=== PATIENT | male | born 1930 | race Caucasian/White ===

== ENCOUNTER 2020-09-24 20:03 | Day surgery (SDCO) | payer OTHER ==
[~2020-09-24 20:03] MED LIST: 3IN1 COMMODE XX; ADALAT CC60 MG PO; ALLOPURINOL100 MG PO; ALLOPURINOL300 MG PO; ARICEPT 5MG TABL5 MG PO; ASPIRIN325 MG PO; AUGMENTIN 875-1 EACH PO; DIGITEK125 MCG PO; GLUCOPHAGE500 MG PO; LIPITOR 10MG TA10 MG PO; LISINOPRIL 5 MG5 MG PO; LYRICA25 MG PO; METFORMIN HCL500 MG PO; METOPROLOL TAR100 MG PO; MOBIC7.5 MG PO; NEURONTIN400 MG PO; NIFEDIPINE ER60 MG PO; NORCO 5-325 TA1 EACH PO; POLY-IRON150 MG PO; SYNTHROID112 MCG PO; SYNTHROID25 MCG PO; TRIAMTERENE-HC1 EACH PO; ULTRA-LIGHT RO1 EACH XX; ZYRTEC10 M3 PO
[2020-09-24 20:50] LABS: BASOPHIL 0.3 % (0-2); EOSINOPHIL 1.8 % (0-7); HGB 9.3 g/dl (13.2-18.0); LYMPHOCYTE 26.2 % (15-48); MCH 33.3 pg (25.0-31.0); MCHC 32.1 g/dL (32.0-36.0); MCV 103.9 fL (78.0-100.0); MONOCYTE 9.5 % (0-12); MPV 10.1 fL (6.0-9.5); NEUTROPHIL 61.4 % (41-80); NRBC 0; PLT 131 K/uL (150-400); RBC 2.79 M/uL (4.70-6.00); RDW 14.6 % (11.5-14.0); WBC 6.6 K/uL (4.0-10.5)
[2020-09-24 21:02] LABS: ALBUMIN 3.1 g/dL (3.4-5.0); BILIRUBIN - TOTAL 0.6 mg/dL (0.2-1.0); BUN/CREAT RATIO (CALC) 15.4 RATIO; CREATININE 1.17 mg/dL (0.67-1.17); GLOBULIN (CALCULATION) 4.6 g/dL; POTASSIUM 4.3 mmol/L (3.5-5.1); TOTAL PROTEIN 7.7 g/dL (6.4-8.2)
[2020-09-24 21:05] LABS: LACTIC ACID 2.7 mmol/L (0.4-1.9)
[2020-09-24 22:03] LABS: CORONAVIRUS 2019 SARS-COV-2 NEGATIVE (NEGATIVE); INFLUENZA A NAA NEGATIVE (NEGATIVE)
[2020-09-25 00:04] LABS: BILIRUBIN NEGATIVE (NEGATIVE); BLOOD 1+ Ery/uL (NEGATIVE); CLARITY CLEAR (CLEAR); COLOR YELLOW (YELLOW); GLUCOSE (U) NORMAL (NORMAL); LEUKOCYTES NEGATIVE Leu/uL (NEGATIVE); NITRITE NEGATIVE (NEGATIVE); PROTEIN TRACE (LOW) mg/dL (NEGATIVE); UROBILINOGEN 0.2 mg/dL (0.2-1.0)
[2020-09-25 00:09] LABS: SQUAMOUS EPITHELIAL CELLS RARE
[2020-09-25 08:25] LABS: BASOPHIL 0.2 % (0-2); EOSINOPHIL 0.7 % (0-7); HCT 28.4 % (42.0-52.0); HGB 9.1 g/dl (13.2-18.0); LYMPHOCYTE 22.9 % (15-48); MCH 32.9 pg (25.0-31.0); MCV 102.5 fL (78.0-100.0); MONOCYTE 13.2 % (0-12); MPV 9.4 fL (6.0-9.5); NEUTROPHIL 62.2 % (41-80); NRBC 0; PLT 117 K/uL (150-400); RBC 2.77 M/uL (4.70-6.00); RDW 14.5 % (11.5-14.0); WBC 5.9 K/uL (4.0-10.5)
[2020-09-25 08:43] LABS: IRON % SATURATION 9.4 %SAT (20-50)
[2020-09-25 09:12] LABS: CREATININE 1.06 mg/dL (0.67-1.17); FOLIC ACID (SERUM) 12.1 ng/mL (8.6-58.9); POTASSIUM 4.1 mmol/L (3.5-5.1)
[2020-09-25] MEDS ORDERED: LISINOPRIL5 MG PO (11:51)
[2020-09-25] MEDS ORDERED: PREGABALIN25 MG PO (11:51)
[2020-09-25] MEDS ORDERED: NIFEDIPINE ER60 M1 PO (11:52)
[2020-09-25] MEDS ORDERED: METFORMIN HCL500 MG PO (11:53)
[2020-09-25] MEDS ORDERED: ALL DAY ALLERGY10 M2 PO (11:53)
--- NOTE | 2020-09-25 14:18 | NUR ---
SPOKE [facility] PT. SON, JUNIOR CHAD BROOKS. ADVISED HIM AND HIS CAREGIVER, MARLO ZHANG, OF THE RECOMMENDATION FROM THERAPY REGARDING HIS FATHER. EXPLAINED THAT THE THERAPY RECOMMENDATION IS FOR PT. TO GO TO A ALF FACILITY FOR REHAB. REFERRAL HAS BEEN SENT TO [facility] SO THEY MAY PURSUE AN AUTHORIZATION FROM HIS INSURANCE. PT. IS HAVING LEFT SIDED WEAKNESS AND IS GOING FOR A MRI.
--- NOTE | 2020-09-26 07:33 | NUR ---
ORIENTATING VICENTE HADLEY, VERIFIES ALL DOCUMENTATION IS TRUE AND ACCURATE. DID ALL ASSESMENTS AND MEDICATION PASSES WITH VICENTE HADLEY
[2020-09-26] MEDS ORDERED: PLAVIX75 MG PO (10:16)
[2020-09-26] MEDS ORDERED: ASPIRIN EC81 MG PO (10:16)
[2020-09-26] MEDS ORDERED: TOPROL XL 50 MG50 MG PO (10:18)
[2020-09-27 03:53] LABS: HCT 25.8 % (42.0-52.0); HGB 8.6 g/dl (13.2-18.0); MCHC 33.3 g/dL (32.0-36.0); MPV 9.9 fL (6.0-9.5); RBC 2.53 M/uL (4.70-6.00); RDW 14.1 % (11.5-14.0); WBC 3.7 K/uL (4.0-10.5)
[2020-09-27 04:07] LABS: BUN/CREAT RATIO (CALC) 17.5 RATIO; CREATININE 1.2 mg/dL (0.67-1.17); POTASSIUM 3.6 mmol/L (3.5-5.1)
--- NOTE | 2020-09-28 12:54 | NUR ---
TC FANY DE LA GARZA AT [facility].. [facility] AND [facility]ILL PENDING. SHE WILL ADVISE WHEN SHE HAS THE AUTHORIZATION FROM THE INSURANCE.
--- NOTE | 2020-09-28 12:55 | NUR ---
MET WITH PATIENT. HE ADVISES THAT HE WISHES TO RETURN TO THE HOME OF HIS SISTER AND BROTHER IN LAW. HE DOES HAVE A WHEELCHAIR. TC TO [phone]. PER ORVAL THIS IS HIS SISTER'S PHONE NUMBER, BUT HE THINKS SHE LOST HER PHONE. TC FANY ROCA SHE GAVE ME THE PHONE FOR [facility]- BROTHER IN LAW. [phone]. LEFT MESSAGE FOR HIM TO CONTACT ME.
--- NOTE | 2020-09-28 15:25 | NUR ---
TWO TC WITH FREDERIC AT [facility]. SHE ADVISED THAT SHE HAS BEEN INFORMED BY [facility] THAT THE CASE IS STILL PENDING.
--- NOTE | 2020-09-28 16:15 | NUR ---
SPOKE WITH CHARMAINE AT [facility]. SHE INFORMED ME THAT PT. WOULD REQUIRE A NEW COVID TEST BEFORE HE COULD BE ADMITTED. SHE DID STATE THAT THEY HAD RECEIVED HIS AUTHORIZATION FROM THE INSURANCE. ADVISED CHARMAINE THAT I SHOULD HAVE BEEN TOLD THIS MORNING THAT PT. WOULD REQUIRE A NEW COVID TEST. ADVISED DR. COLLINS THAT [facility] HAS RECEIVED AUTH, BUT NOW NEEDS A NEW COVID TEST.
--- NOTE | 2020-09-28 16:29 | NUR ---
SPOKE WITH CHARMAINE, [facility]. SHE WILL TAKE PT. THIS EVENING ONCE RECEIVE NEG COVID TEST AND D/C SUMMARY. REPORT NUMBER IS [phone] OR [phone] FAX FOR REPORT IS [phone]
--- NOTE | 2020-09-28 16:53 | NUR ---
TC TO PT. SON HAD TO LEAVE A MESSAGE FOR HIM TO CONTACT ME.
--- NOTE | 2020-09-28 17:26 | NUR ---
PER JUAN MAYO RN IS GOING TO ARRANGE FOR PT. TO BE TRANSPORTED BY AMBULANCE. COULDN'T FIND JUAN, BUT TOLD JOMAR TOMLINSON TO ADVISE JUAN TO CONTACT THE SON IF THE AMBULANCE NEEDED PAYOR INFORMATION.
== END 2020-09-28 18:20 ==
LOC: FER 20:03 → FMS 09-25 00:23
PROVIDERS: Emergency Medicine Emergency Medical Services; Nurse Practitioner; ADMIT Hospitalist
DX: I63.9 Cerebral infarction, unspecified (principal); I65.21 Occlusion and stenosis of right carotid artery; I66.01 Occlusion and stenosis of right middle cerebral artery; R53.1 Weakness; R27.0 Ataxia, unspecified; D50.9 Iron deficiency anemia, unspecified; R29.6 Repeated falls; M47.812 Spondylosis without myelopathy or radiculopathy, cervical region; M48.02 Spinal stenosis, cervical region; M10.9 Gout, unspecified; I10 Essential (primary) hypertension; D53.9 Nutritional anemia, unspecified; E11.9 Type 2 diabetes mellitus without complications; E03.9 Hypothyroidism, unspecified; E78.5 Hyperlipidemia, unspecified; F03.90 Unspecified dementia, unspecified severity, without behavioral disturbance, psychotic disturbance, mood disturbance, and anxiety; D53.1 Other megaloblastic anemias, not elsewhere classified; Z86.79 Personal history of other diseases of the circulatory system; Z98.890 Other specified postprocedural states; Z20.822 Contact with and (suspected) exposure to COVID-19; Z79.899 Other long term (current) drug therapy
CPT/HCPCS: 36415; 70450; 70551; 71045; 71101; 72125; 72170; 80048; 80053; 80162; 81001; 82607; 82728; 82746; 83540; 83550; 83605; 84145; 84484; 85025; 86140; 87088; 93005; 97162; 97166; 97530; 97530-GP; 97535; G0378; J1650; J7030; U0002

== ENCOUNTER 2020-10-17 17:23 | Inpatient (IN) | payer OTHER ==
[~2020-10-17 17:23] MED LIST changes: +ALL DAY ALLERGY10 M2 PO; +ASPIRIN EC81 MG PO; +LISINOPRIL5 MG PO; +NIFEDIPINE ER60 M1 PO; +PLAVIX75 MG PO; +PREGABALIN25 MG PO; +TOPROL XL 50 MG50 MG PO
[2020-10-17 19:40] LABS: BASOPHIL 0.1 % (0-2); EOSINOPHIL 0.3 % (0-7); HCT 31.2 % (42.0-52.0); HGB 10.1 g/dl (13.2-18.0); LYMPHOCYTE 17.5 % (15-48); MCHC 32.4 g/dL (32.0-36.0); NEUTROPHIL 70.4 % (41-80); NRBC 0; PLT 145 K/uL (150-400); RBC 3.06 M/uL (4.70-6.00); RDW 14.1 % (11.5-14.0); WBC 7.4 K/uL (4.0-10.5)
[2020-10-17 20:00] LABS: ALBUMIN 2.8 g/dL (3.4-5.0); BILIRUBIN - TOTAL 0.3 mg/dL (0.2-1.0); BUN/CREAT RATIO (CALC) 43.1 RATIO; CREATININE 1.67 mg/dL (0.67-1.17); GLOBULIN (CALCULATION) 4.9 g/dL; POTASSIUM 4.2 mmol/L (3.5-5.1); TOTAL PROTEIN 7.7 g/dL (6.4-8.2)
[2020-10-17 20:14] LABS: LACTIC ACID 3.6 mmol/L (0.4-1.9)
[2020-10-17 20:39] LABS: BILIRUBIN NEGATIVE (NEGATIVE); BLOOD 3+ Ery/uL (NEGATIVE); CLARITY CLOUDY (CLEAR); COLOR RED (YELLOW); GLUCOSE (U) NORMAL (NORMAL); LEUKOCYTES 2+ Leu/uL (NEGATIVE); NITRITE NEGATIVE (NEGATIVE); PROTEIN 2+ mg/dL (NEGATIVE); UROBILINOGEN 0.2 mg/dL (0.2-1.0)
[2020-10-17 20:39] LABS: CORONAVIRUS 2019 SARS-COV-2 NEGATIVE (NEGATIVE); INFLUENZA A NAA NEGATIVE (NEGATIVE)
[2020-10-17 20:41] LABS: URINARY RBC TNTC; URINARY WBC TNTC
[2020-10-18] MEDS ORDERED: FERROUS SULFAT325 MG PO (02:15)
[2020-10-18 03:55] LABS: BASOPHIL 0.1 % (0-2); HCT 30.2 % (42.0-52.0); LYMPHOCYTE 2.4 % (15-48); MCH 32.9 pg (25.0-31.0); MCHC 33.1 g/dL (32.0-36.0); MCV 99.3 fL (78.0-100.0); MONOCYTE 2.1 % (0-12); MPV 9.7 fL (6.0-9.5); NEUTROPHIL 94.2 % (41-80); PLT 108 K/uL (150-400); RBC 3.04 M/uL (4.70-6.00); RDW 14.2 % (11.5-14.0); WBC 11.49 K/uL (4.0-10.5)
[2020-10-18 04:21] LABS: ALBUMIN 2.3 g/dL (3.4-5.0); BILIRUBIN - TOTAL 0.8 mg/dL (0.2-1.0); BUN/CREAT RATIO (CALC) 41.3 RATIO; CREATININE 1.79 mg/dL (0.67-1.17); GLOBULIN (CALCULATION) 4.2 g/dL; TOTAL PROTEIN 6.5 g/dL (6.4-8.2)
[2020-10-18 04:54] LABS: MAGNESIUM 1.6 mg/dL (1.8-2.4); PHOSPHORUS 1.6 mg/dL (2.6-4.7)
[2020-10-18 09:13] LABS: LACTIC ACID 2.5 mmol/L (0.4-1.9)
[2020-10-18 13:55] LABS: BASOPHIL 0.2 % (0-2); EOSINOPHIL 0 % (0-7); HCT 28.5 % (42.0-52.0); HGB 9.4 g/dl (13.2-18.0); LYMPHOCYTE 2.8 % (15-48); MCH 33.8 pg (25.0-31.0); MCV 102.5 fL (78.0-100.0); MONOCYTE 8.3 % (0-12); MPV 10.8 fL (6.0-9.5); NEUTROPHIL 84.5 % (41-80); NRBC 0.1; PLT 109 K/uL (150-400); RBC 2.78 M/uL (4.70-6.00); RDW 14.6 % (11.5-14.0)
[2020-10-18 13:59] LABS: WBC 33.4 K/uL (4.0-10.5)
[2020-10-18 14:00] LABS: BUN/CREAT RATIO (CALC) 35.2 RATIO; CREATININE 2.1 mg/dL (0.67-1.17); PHOSPHORUS 3.9 mg/dL (2.6-4.7)
[2020-10-18 14:08] LABS: MAGNESIUM 2.2 mg/dL (1.8-2.4)
--- NOTE | 2020-10-19 02:51 | NUR ---
PT TRANSFERD TO ICU AND PLACED ON LEVOPHED DRIP. PT BP CONTINUE TO FLUCTUATE. LEVOPHED DECREASE TO 1MCG/MIN AT 1925 D/T BP 175/42 2040 AUTOMATIC BP ON LEFT ARM 161/38 AND MANUAL 120/55 2200 AUTOMATIC BP ON RIGHT ARM 92/71 AND MANUAL 100/80 2300 AUTOMATIC BP ON RIGHT ARM 80/47, MANUAL ON RIGHT ARM 80/50, MANUAL ON LEFT ARM 130/60. MD NOTIFIED. OKED TO CONTINUE LEVOPHED AT 1MCG/MIN 0100 AUTOMATIC BP LEFT LEG 110/43 0140 AUTOMATIC BP LEFT LEG 140/41 MD ORDERED TO STOP LEVOPHED DRIP AND CONTINUE TO MONITOR
[2020-10-19 06:26] LABS: BASOPHIL 0.2 % (0-2); EOSINOPHIL 0.1 % (0-7); HCT 23.2 % (42.0-52.0); HGB 7.9 g/dl (13.2-18.0); LYMPHOCYTE 3.6 % (15-48); MCH 34.1 pg (25.0-31.0); MCHC 34.1 g/dL (32.0-36.0); MONOCYTE 4.9 % (0-12); MPV 10.7 fL (6.0-9.5); NEUTROPHIL 89.6 % (41-80); NRBC 0; RBC 2.32 M/uL (4.70-6.00); RDW 14.6 % (11.5-14.0); RETICULOCYTE COUNT 0.9 % (1.0-2.0); WBC 10.7 K/uL (4.0-10.5)
[2020-10-19 06:57] LABS: BILIRUBIN - TOTAL 0.4 mg/dL (0.2-1.0); BUN/CREAT RATIO (CALC) 30.8 RATIO; CREATININE 1.95 mg/dL (0.67-1.17); FOLIC ACID (SERUM) 5.4 ng/mL (8.6-58.9); GLOBULIN (CALCULATION) 3.8 g/dL; PHOSPHORUS 2.4 mg/dL (2.6-4.7); POTASSIUM 3.2 mmol/L (3.5-5.1); TOTAL PROTEIN 5.8 g/dL (6.4-8.2)
[2020-10-19 07:13] LABS: PLT 77 K/uL (150-400)
--- NOTE | 2020-10-19 15:22 | NUR ---
10/19/20 Mr. Landers lives with his daughter, Kassandra Landers, [phone]. He [facility] 24 hour care through [facility]. [facility] is current for nursing, OT/PT, and bath aid. He has a hospital bed, rw, wc, cane, 3in1, s. chair and gait belt. Family wishes for Mr. Landers to return home, Juany Amezcua, daughter, who was at bedside.
[2020-10-20 05:49] LABS: HCT 21.4 % (42.0-52.0); HGB 6.9 g/dl (13.2-18.0); MCH 32.7 pg (25.0-31.0); MCHC 32.2 g/dL (32.0-36.0); MCV 101.4 fL (78.0-100.0); MPV 10.6 fL (6.0-9.5); RBC 2.11 M/uL (4.70-6.00); WBC 3.5 K/uL (4.0-10.5)
[2020-10-20 06:08] LABS: BUN/CREAT RATIO (CALC) 22.2 RATIO; CREATININE 1.89 mg/dL (0.67-1.17); POTASSIUM 3.3 mmol/L (3.5-5.1)
[2020-10-20 09:05] LABS: BASOPHIL 0 % (0-2); EOSINOPHIL 0.3 % (0-7); HCT 21.7 % (42.0-52.0); HGB 7.3 g/dl (13.2-18.0); LYMPHOCYTE 17.4 % (15-48); MCH 33.8 pg (25.0-31.0); MCHC 33.6 g/dL (32.0-36.0); MCV 100.5 fL (78.0-100.0); MONOCYTE 7.9 % (0-12); MPV 11.1 fL (6.0-9.5); NEUTROPHIL 72.8 % (41-80); NRBC 0; PLT 52 K/uL (150-400); RBC 2.16 M/uL (4.70-6.00); RDW 14.9 % (11.5-14.0); WBC 3.2 K/uL (4.0-10.5)
[2020-10-21 06:51] LABS: HCT 31.4 % (42.0-52.0); HGB 10.5 g/dl (13.2-18.0); MCH 32.7 pg (25.0-31.0); MCHC 33.4 g/dL (32.0-36.0); MCV 97.8 fL (78.0-100.0); RBC 3.21 M/uL (4.70-6.00); RDW 15.8 % (11.5-14.0); WBC 2.9 K/uL (4.0-10.5)
[2020-10-21 07:26] LABS: BUN/CREAT RATIO (CALC) 20.4 RATIO; CREATININE 1.67 mg/dL (0.67-1.17); POTASSIUM 3.2 mmol/L (3.5-5.1)
--- NOTE | 2020-10-21 09:59 | NUR ---
10/21/20 Mr. Landers will require IV antibiotic treatment following discharge. A message was left for Junior Landers, son on 10/20 in efforts to discuss HH vs SNF. Options were discussed with Mr. Landers son and his girlfriend, Mony Zaragoza. Mr. Landers requested for Ms. Zaragoza to be included in the planning. They will will return a call at noon with a decision. Choices of NHs were presented. - Ms. Zaragoza agreed to email a copy of the POA.
--- NOTE | 2020-10-21 17:21 | NUR ---
10/21/20 1620 MIDLINE ORDER ORDER RECEIVED FOR MIDLINE INSERTION. PROCEDURE EXPLANIED TO PATIENT. PT PREPPED AND DRAPED IN STERILE FASHION. THE PT'S LEFT UPPER ARM BASILIC VEIN WAS VISUALIZED USING THE SITE RITE 6 ULTRA SOUND. A 21 GA NEEDLE WAS USED. GOOD BLOOD RETURN WAS NOTED. THE GUIDE WIRE THREADED EASILY. THE NEEDLE WAS REMOVED AND THE MIDLINE CATHETER WAS PLACED OVER THE WIRE. THE WIRE AND SHEATH WERE REMOVED. GOOD BLOOD RETURN WAS NOTED. A CONNECTOR WAS FLUSHED AND PLACED OVER THE END OF THE CATHETER. A STAT LOCK WAS PLACED ON THE CATHETER AND A STERILE BIOPATCH WAS ALSO PLACED ON THE INSERTION SITE. A STERILE TEGADERM WAS PLACED OVER THE MIDLINE CATHETER. PT TOLERATED WELL. PT HAS A 20GA 10 CM POWERGLIDE MIDLINE CATHETER. GOOD FOR 29 DAYS. THIS IS NOT A CENTRAL LINE. REPORT TO A MUNDO HADLEY (TCU)
[2020-10-22 04:57] LABS: BUN/CREAT RATIO (CALC) 19.5 RATIO; CREATININE 1.49 mg/dL (0.67-1.17); POTASSIUM 3.5 mmol/L (3.5-5.1)
[2020-10-22 09:45] LABS: HCT 28.8 % (42.0-52.0); HGB 9.8 g/dl (13.2-18.0); MCH 33.2 pg (25.0-31.0); MCV 97.6 fL (78.0-100.0); MPV 11.6 fL (6.0-9.5); RBC 2.95 M/uL (4.70-6.00); RDW 15.3 % (11.5-14.0); WBC 3.1 K/uL (4.0-10.5)
[2020-10-22 09:46] LABS: BUN/CREAT RATIO (CALC) 19.6 RATIO; CREATININE 1.48 mg/dL (0.67-1.17); POTASSIUM 3.6 mmol/L (3.5-5.1)
[2020-10-22 17:11] LABS: HEPARIN INDUCED PLATELET AB 0.091 OD (0.000-0.400)
[2020-10-23 03:54] LABS: HCT 24.5 % (42.0-52.0); HGB 8.3 g/dl (13.2-18.0); MCH 32.8 pg (25.0-31.0); MCHC 33.9 g/dL (32.0-36.0); MCV 96.8 fL (78.0-100.0); RBC 2.53 M/uL (4.70-6.00); RDW 15.1 % (11.5-14.0); WBC 2.7 K/uL (4.0-10.5)
[2020-10-23 04:10] LABS: BUN/CREAT RATIO (CALC) 19.6 RATIO; CREATININE 1.38 mg/dL (0.67-1.17); POTASSIUM 3.8 mmol/L (3.5-5.1)
--- NOTE | 2020-10-23 13:12 | NUR ---
10/23/[address] Calvo, Mr. Landers will not be discharged over the weekend. Should status change and patient is discharged; please notified [facility] at [phone]. [facility] has the order for IV antibiotics. [facility] should contact [facility] at [phone]. - Report given to BILLY Najera RN.
[2020-10-24 05:50] LABS: HCT 24.5 % (42.0-52.0); HGB 8.5 g/dl (13.2-18.0); MCH 33.3 pg (25.0-31.0); MCHC 34.7 g/dL (32.0-36.0); MCV 96.1 fL (78.0-100.0); MPV 11.8 fL (6.0-9.5); RBC 2.55 M/uL (4.70-6.00); RDW 14.6 % (11.5-14.0); WBC 3.1 K/uL (4.0-10.5)
[2020-10-24 06:19] LABS: BUN/CREAT RATIO (CALC) 14.4 RATIO; CREATININE 1.39 mg/dL (0.67-1.17); POTASSIUM 3.8 mmol/L (3.5-5.1)
[2020-10-26 05:44] LABS: HCT 27.2 % (42.0-52.0); HGB 9.1 g/dl (13.2-18.0); MCH 32.2 pg (25.0-31.0); MCHC 33.5 g/dL (32.0-36.0); MCV 96.1 fL (78.0-100.0); MPV 11.2 fL (6.0-9.5); RBC 2.83 M/uL (4.70-6.00); RDW 14.6 % (11.5-14.0); WBC 3.3 K/uL (4.0-10.5)
[2020-10-26 06:40] LABS: BUN/CREAT RATIO (CALC) 14.5 RATIO; CREATININE 1.38 mg/dL (0.67-1.17)
--- NOTE | 2020-10-26 10:48 | NUR ---
10/26/20 Discharge is anticipated for today. Patient will be discharged on p.o. meds per Dr. Nguyen. - [facility] was informed of discharge and change in medications orders.
--- NOTE | 2020-10-26 12:34 | NUR ---
10/26/20 Arrangements have been made for [facility] to transport home at 3:00; trip # [id number]. A caregiver from [facility] will bring the wc and accompany Mr. Landers home. A second person will be at the home to assist transfer to the hospital bed. The hospital bed has been delivered to home. - A report was given to BILLY Frausto RN.
[2020-10-26] MEDS ORDERED: TOPROL XL 50 MG50 MG PO (13:08)
[2020-10-26] MEDS ORDERED: ZINC OXIDE60 GM TOP (13:08)
[2020-10-26] MEDS ORDERED: LEVAQUIN750 MG PO (13:08)
[2020-10-27] MEDS ORDERED: ULTRAM50 MG PO (00:38)
== END 2020-10-26 14:58 | disposition home or self-care (01) | DRG 871 ==
LOC: FER 17:23 → FMS 23:08 → FICU 10-18 11:17 → FTCU 10-21 09:32
PROVIDERS: Hospitalist; Internal Medicine; Internal Medicine Cardiovascular Disease; Nurse Practitioner; Student in an Organized Health Care Education/Training Program; ADMIT Allergy & Immunology Allergy
PROC: 3E033XZ Introduction of Vasopressor into Peripheral Vein, Percutaneous Approach (ICD-10-PCS; principal; 2020-10-17)
PROC: 30233N1 Transfusion of Nonautologous Red Blood Cells into Peripheral Vein, Percutaneous Approach (ICD-10-PCS; 2020-10-20)
PROC: 05HC33Z Insertion of Infusion Device into Left Basilic Vein, Percutaneous Approach (ICD-10-PCS; 2020-10-21)
DX: A41.59 Other Gram-negative sepsis (principal); R65.21 Severe sepsis with septic shock; G93.41 Metabolic encephalopathy; I21.A1 Myocardial infarction type 2; N30.01 Acute cystitis with hematuria; N17.9 Acute kidney failure, unspecified; D61.818 Other pancytopenia; E87.0 Hyperosmolality and hypernatremia; I48.20 Chronic atrial fibrillation, unspecified; E87.2 Acidosis; Z20.822 Contact with and (suspected) exposure to COVID-19; E11.9 Type 2 diabetes mellitus without complications; I10 Essential (primary) hypertension; I44.0 Atrioventricular block, first degree; N18.30 Chronic kidney disease, stage 3 unspecified; F03.90 Unspecified dementia, unspecified severity, without behavioral disturbance, psychotic disturbance, mood disturbance, and anxiety; I49.8 Other specified cardiac arrhythmias; T46.0X5A Adverse effect of cardiac-stimulant glycosides and drugs of similar action, initial encounter; Z66 Do not resuscitate; I25.10 Atherosclerotic heart disease of native coronary artery without angina pectoris; R13.10 Dysphagia, unspecified; M10.9 Gout, unspecified; E03.9 Hypothyroidism, unspecified; Z98.890 Other specified postprocedural states; Z86.73 Personal history of transient ischemic attack (TIA), and cerebral infarction without residual deficits; Z79.82 Long term (current) use of aspirin; Z79.899 Other long term (current) drug therapy; Z79.02 Long term (current) use of antithrombotics/antiplatelets; Z79.84 Long term (current) use of oral hypoglycemic drugs
CPT/HCPCS: 36415; 36430; 70450; 71045; 80048; 80053; 80162; 81001; 82150; 82607; 82746; 82962; 83540; 83550; 83605; 83735; 83880; 84100; 84145; 84484; 85025; 86022; 86850; 86900; 86901; 86922; 87040; 87076; 87077; 87088; 87186; 87449; 92526; 93005; 94760; 97163; 97166; 97530; 97530-GP; 97535; C1751; C9113; J0696; J1162; J1642; J1650; J1956; J2543; J3370; J3475; J3480; J7030; J7040; J7050; J7070; P9016; U0002

== ENCOUNTER 2020-10-26 22:14 | Emergency (ER) | payer OTHER ==
[~2020-10-26 22:14] MED LIST changes: +FERROUS SULFAT325 MG PO; +LEVAQUIN750 MG PO; +ZINC OXIDE60 GM TOP
[2020-10-26 22:53] LABS: BASOPHIL 0.3 % (0-2); EOSINOPHIL 1.7 % (0-7); HCT 25.2 % (42.0-52.0); HGB 8.7 g/dl (13.2-18.0); LYMPHOCYTE 37.9 % (15-48); MCHC 34.5 g/dL (32.0-36.0); MCV 95.5 fL (78.0-100.0); MONOCYTE 7.4 % (0-12); NEUTROPHIL 51.7 % (41-80); NRBC 0; RBC 2.64 M/uL (4.70-6.00); RDW 14.6 % (11.5-14.0)
[2020-10-26 22:55] LABS: PLT 91 K/uL (150-400)
[2020-10-26 23:17] LABS: LACTIC ACID 2.5 mmol/L (0.4-1.9)
[2020-10-26 23:18] LABS: BILIRUBIN NEGATIVE (NEGATIVE); BLOOD 1+ Ery/uL (NEGATIVE); CLARITY CLEAR (CLEAR); COLOR YELLOW (YELLOW); GLUCOSE (U) NORMAL (NORMAL); LEUKOCYTES 2+ Leu/uL (NEGATIVE); NITRITE NEGATIVE (NEGATIVE); PROTEIN TRACE (LOW) mg/dL (NEGATIVE); UROBILINOGEN 0.2 mg/dL (0.2-1.0); pH 5.5 (5.0-9.0)
[2020-10-26 23:21] LABS: ALBUMIN 1.8 g/dL (3.4-5.0); BILIRUBIN - TOTAL 0.5 mg/dL (0.2-1.0); CREATININE 1.42 mg/dL (0.67-1.17); GLOBULIN (CALCULATION) 4.1 g/dL; POTASSIUM 4.1 mmol/L (3.5-5.1); TOTAL PROTEIN 5.9 g/dL (6.4-8.2)
[2020-10-26 23:51] LABS: BACTERIA 1+; SQUAMOUS EPITHELIAL CELLS RARE; URINARY WBC 20-50
[2020-10-27] MEDS ORDERED: ULTRAM50 MG PO (00:38)
== END 2020-10-27 01:15 | disposition home or self-care (01) ==
LOC: FER 22:14
PROVIDERS: Emergency Medicine
DX: M19.011 Primary osteoarthritis, right shoulder (principal); E11.9 Type 2 diabetes mellitus without complications; I10 Essential (primary) hypertension; F03.90 Unspecified dementia, unspecified severity, without behavioral disturbance, psychotic disturbance, mood disturbance, and anxiety
CPT/HCPCS: 36415; 36600; 71045; 73030; 80053; 81001; 82803; 83605; 84484; 85025; 87040; 93005